=== PATIENT | female | born 1990 | race Two or more races ===

== ENCOUNTER 2017-11-20 15:35 | Emergency (ER) | payer MEDICAID ==
[~2017-11-20] VITALS: Ht 160 cm; Wt 59.0 kg
[2017-11-20 16:01] VITALS: BP 105/44
[2017-11-20 17:14] LABS: Urine Bacteria NONE SEEN /hpf (None Seen); Urine Blood Negative /uL (Negative); Urine Specific Gravity 1.029 (1.001-1.035); Urine WBC <1 /hpf (0 - 5)
== END 2017-11-20 19:50 | disposition home or self-care (01) ==
LOC: ER 15:39
DX: Z32.02 Encounter for pregnancy test, result negative (principal)
CPT/HCPCS: 36415; 81001; 81025; 84702